=== PATIENT | female | born 1955 | race Caucasian/White ===

== ENCOUNTER 2024-06-11 10:23 | Inpatient (IN) | payer MEDICARE, OTHER ==
[2024-06-11] MEDS ORDERED: Ondansetron PF 4 MG/2 ML Vial IVP PRN (13:39)
[2024-06-11] MEDS: Nicotine 21 MG PATCH TD SCH (15:16)
[2024-06-11] MEDS: Acetaminophen 325 MG TAB PO PRN (15:20)
[2024-06-11] MEDS: Ipratropium/Albuterol 3 ML NEB NEB SCH (16:06)
[2024-06-11 17:37] VITALS: BMI 27.0
[2024-06-11] MEDS ORDERED: Ipratropium/Albuterol 3 ML NEB NEB SCH (19:00)
[2024-06-11] MEDS: methylPREDNISolone Sod Succ 40 MG VIAL IVP SCH (19:15)
[2024-06-12] MEDS: Ipratropium/Albuterol 3 ML NEB NEB PRN (01:46)
[2024-06-12] MEDS: Famotidine 20 MG TAB PO SCH (02:23)
[2024-06-12 03:31] LABS: #Basophils Less than 0.03 10x3/uL (0.0-0.2); #Eosinophils Less than 0.03 10x3/uL (0.0-0.7); %Basophils 0.2 % (0.0-1.0); %Lymphocytes 6.8 % (21.0-51.0); %Monocytes 8.4 % (0.0-10.0); Hematocrit 40.6 % (36.0-47.0); Hemoglobin 12.5 g/dL (12.0-16.0); Mean Corpuscular HGB CONC 30.8 g/dL (32.0-36.0); Mean Corpuscular Volume 97.6 fL (78.0-98.0); Mean Platelet Volume 10.2 fL (7.4-10.4); Platelet Count 194 10x3/uL (130-400); RBC Distribution Width 13.5 % (11.5-14.5); Red Blood Cell (RBC) Count 4.16 mill/uL (4.20-5.40)
[2024-06-12 04:51] LABS: Anion Gap 13 mmol/L (10-20); BUN (Urea Nitrogen) 19 mg/dL (9.8-20.1); Calc. Creatinine Clearance 85 mL/min (70-130); Calcium 8.3 mg/dL (7.8-10.44); Carbon Dioxide 28 mmol/L (23-31); Chloride 104 mmol/L (98-107); Estimated GFR 89; Glucose 111 mg/dL (80-115); Potassium 4.6 mmol/L (3.5-5.1); Sodium 140 mmol/L (136-145)
[2024-06-12] MEDS: cefTRIAXone\\ROCEPHIN 1 GM in Sodium Chloride 0.9% 100 ML IVPB SCH (05:25)
[2024-06-12] MEDS ORDERED: Azithromycin 500 MG in Sodium Chloride 0.9% 250 ML 250 ML IVPB SCH (06:00)
[2024-06-12] MEDS ORDERED: Zolpidem Tartrate 5 MG TAB PO PRN (08:51)
[2024-06-12] MEDS: guaiFENesin ER 600 MG TAB PO SCH (09:29)
[2024-06-12] MEDS: Pantoprazole 40 MG DR.TAB PO SCH (09:29)
[2024-06-12] MEDS: ALPRAZolam 0.25 MG TAB PO PRN (09:30)
[2024-06-12] MEDS: Montelukast Sodium 10 mg Tablet PO SCH (09:30)
[2024-06-12] MEDS: Enoxaparin 40 MG (0.4 mL) SYRINGE SC SCH (09:32)
[2024-06-12] MEDS: Mometasone 200 MCG/Formoterol 5 MCG 120 PUFF INHALER INH SCH ×2 (10:15→18:50)
[2024-06-12] MEDS: methylPREDNISolone Sod Succ 40 MG VIAL IVP SCH (21:15)
[2024-06-12] MEDS: Doxycycline 100 MG CAP PO SCH (21:15)
[2024-06-13] MEDS: Albuterol 200 PUFF INH INH PRN (16:08)
[2024-06-14] MEDS: methylPREDNISolone Sod Succ 40 MG VIAL IVP SCH (08:30)
[2024-06-14 08:45] VITALS: TEMP 97.5
[2024-06-14 12:25] VITALS: BP 122/71
== END 2024-06-14 13:37 | disposition home or self-care (01) | DRG 190 ==
LOC: IMCU/EMU 11:58 → T4-B 06-13 12:54
PROVIDERS: ADMIT Internal Medicine; ATTEND Internal Medicine
DX: J44.1 Chronic obstructive pulmonary disease with (acute) exacerbation (principal); J96.01 Acute respiratory failure with hypoxia; N39.0 Urinary tract infection, site not specified; F17.210 Nicotine dependence, cigarettes, uncomplicated; Z88.0 Allergy status to penicillin; Z88.4 Allergy status to anesthetic agent; Z88.8 Allergy status to other drugs, medicaments and biological substances; Z79.899 Other long term (current) drug therapy; Z90.49 Acquired absence of other specified parts of digestive tract; Z98.84 Bariatric surgery status; Z85.828 Personal history of other malignant neoplasm of skin
CPT/HCPCS: 36415; 71045; 80048; 80053; 81001; 82805; 83605; 83880; 84145; 84484; 85025; 87040; 87428; 93005; 93010; 94640; 94644; 94660; 94664; J0456; J0696; J2919; J3475; J7611; J7620